=== PATIENT | male | born 1945 | race Caucasian/White ===

== ENCOUNTER 2025-01-17 09:31 | Inpatient (IN) | payer OTHER ==
[2025-01-17 10:05] LABS: Absolute Eosinophils 0.2 K/uL (0-0.5); Absolute Monocytes 0.9 K/uL (0.1-1.3); Absolute Neutrophil 3.3 K/uL (1.8-8.0); Basophils % 0.6 % (0-1.3); Eosinophils % 3.5 % (0-4.4); Hematocrit 41.9 % (39.6-49.0); Hemoglobin 14.2 g/dL (13.6-17.9); Lymphocytes % 31.4 % (15.3-44.8); MCH 34.7 pg (27.0-35.0); MCHC 33.9 g/dL (32.0-36.0); MCV 102.4 fL (80-100); Neutrophils % 50.5 % (41.7-73.7); Nucleated Red Blood Cells % 0.1 % (0-0); Platelets 245 thou/uL (152-406); RBC Red Blood Cell Count 4.09 M/uL (4.33-5.43); Red Cell Distribution Width 16.8 % (12.1-15.2)
[2025-01-17 10:18] LABS: Sqamous Epithelial <5 /HPF (None Seen); Urine Bacteria None Seen /HPF (<20); Urine Bilirubin NEGATIVE (Negative); Urine Blood Negative (Negative); Urine Clarity Clear (Clear); Urine Color Light-Yellow (Yellow); Urine Culture Reflex Order NOT NEEDED; Urine Glucose NEGATIVE (Negative); Urine Ketones NEGATIVE (Negative); Urine Microscopic Reflex YN ORDER UMIC; Urine Mucus Slight /HPF (None Seen); Urine Nitrite NEGATIVE (Negative); Urine Protein NEGATIVE (Negative); Urine RBC <5 /HPF (None Seen); Urine Urobilinogen Normal (Normal); Urine WBC <5 /HPF (<5); Urine pH 7.5 (5.0-7.0)
[2025-01-17 10:25] LABS: Albumin 2.7 g/dL (3.4-5.0); Albumin/Globulin Ratio 0.7 (1.1-1.8); Anion Gap 8.5 mEq/L (5.0-15.0); Bilirubin Total 2.2 mg/dL (0.2-1.0); Globulin 3.7 g/dL (2.3-3.5); Potassium 3.5 mEq/L (3.5-5.1); Protein, Total 6.4 g/dL (6.4-8.2)
[2025-01-17 10:27] LABS: Troponin High Sensitivity 139.7 pg/mL (<58.9)
--- NOTE | 2025-01-17 10:28 | RAD REPORT ---
EXAMINATION: ONE VIEW CHEST XR CLINICAL INDICATION: Male, 79 years old.,COUGH TECHNIQUE: Frontal chest projection is submitted. Examination is limited by patient positioning and t echnique. COMPARISON: No prior exam. FINDINGS: The lungs are well inflated and clear. No pneumothorax or sizable effusion. The heart is normal in s ize. Mediastinal contours are unremarkable. IMPRESSION: No acute intrathoracic abnormalities.
[2025-01-17] MEDS ORDERED: ASPIRIN 325 MG TAB ONE (11:30)
[2025-01-17] MEDS ORDERED: LACTULOSE 20 GM/30 ML UCUP ONE (11:31)
--- NOTE | 2025-01-17 11:33 | ER ---
Nurse's Notes [facility] Name: Irwin Fletcher Age: 79 yrs Sex: Male : 1945 Arrival Date: 01/17/2025 Time: 09:31 Bed 7 Private MD: Diagnosis: HEPATIC ENCEPHALOPATHY;ELEVATED TROPONIN Presentation: 01/17 09:48 Risk Assessment: Do you want to hurt yourself or someone else? Patient reports no iw desire to harm self or others. Onset of symptoms was January 16, 2025. 09:48 Acuity: LC 3 iw 09:49 Chief complaint: EMS states: AMS since yesterday morning, pt is at [place] for rehab and iw normally is ambulatory , could not get up for PT yesterday morning because he was shaking , this morning he was too shaky for PT again, pt arrived to ER incontinent of urine , sheets and diaper saturated with urine , pt oriented to person and place. Coronavirus screen: At this time, the client does not indicate any symptoms associated with coronavirus-19. Ebola Screen: No symptoms or risks identified at this time. Initial Sepsis Screen: Does the patient meet any 2 criteria? Altered Mental Status. Does the patient have a suspected source of infection?. 09:49 Method Of Arrival: EMS: [facility] iw 09:52 Care prior to arrival: IV initiated. 18 GA, in the right antecubital area, Glucose iw check: 92. Historical: - Allergies: 09:56 No Known Allergies; sw6 - PMHx: 09:56 Cirrhosis of liver; sw6 10:05 Kidney disease; Dementia; iw Screenin:34 [facility] ED Fall Risk Assessment (Adult) History of falling in the last 3 months, iw including since admission Yes- single mechanical fall (1 pt) Confusion or Disorientation Yes (5 pts) Intoxicated or Sedated No (0 pts) Impaired Gait Yes (1 pt) Mobility Assist Device Used Yes (1 pt) Altered Elimination Yes (1 pt) Score/Fall Risk Level 3 or more points = High Risk Oriented to surroundings, Maintained a safe environment. Abuse screen: Denies threats or abuse. Nutritional screening: No deficits noted. Tuberculosis screening: No symptoms or risk factors identified. Assessment: 09:36 General: Appears in no apparent distress. Behavior is restless. Pain: Denies pain. iw Neuro: Level of Consciousness is awake, alert, confused, Oriented to person, place. Cardiovascular: Patient's skin is warm and dry. Respiratory: Respiratory effort is even, unlabored, Respiratory pattern is regular. GI: Abdomen is non-distended. Derm: Skin is fragile. 10:34 Reassessment: Patient appears in no apparent distress at this time. Patient and/or iw family updated on plan of care and expected duration. Pain level reassessed. 12:30 Reassessment: Patient appears in no apparent distress at this time. Patient and/or jb4 family updated on plan of care and expected duration. Pain level reassessed. Pt remains alert and oriented x2. Admitting provider at the bedside. 13:30 Reassessment: Patient appears in no apparent distress at this time. Patient and/or jb4 family updated on plan of care and expected duration. Pain level reassessed. Pt A\T\Ox1 respirations are even and unlabored with no s/s of pain or distress noted. 15:00 Reassessment: Patient appears in no apparent distress at this time. No changes from jb4 previously documented assessment. Patient and/or family updated on plan of care and expected duration. Pain level reassessed. Vital Signs: 09:48 BP 162 / 85; Pulse 81; Resp 16; Temp 97.8; Pulse Ox 100% on R/A; iw 10:39 BP 163 / 74; Pulse 84; Resp 16; Pulse Ox 100% on R/A; iw 12:16 BP 154 / 84; Pulse 65; Resp 23; Pulse Ox 98% on R/A; ld1 14:30 BP 140 / 82; Pulse 85; Resp 18; Pulse Ox 95% on R/A; jb4 ED Course: 09:36 Patient arrived in ED. bc6 09:37 Bhavna Pimentel MD is Attending Physician. sw6 09:46 Jovita Pimentel, RN is Primary Nurse. iw 09:49 Triage completed. iw 09:53 Arm band placed on. iw 10:05 CXR XRAY In Process Unspecified. EDMS 10:34 No provider procedures requiring assistance completed. Maintain EMS IV. Dressing iw intact. Good blood return noted. Site clean \T\ dry. Gauge \T\ site: 18 RAC. Flushed with 10 mL NS. 10:36 Patient has correct armband on for positive identification. Provided Education on: . iw Client placed on continuous cardiac and pulse oximetry monitoring. NIBP monitoring applied. batch attendant on. 11:31 [place]ise Jerry is Hospitalizing Provider. sw6 13:00 CT Head Brain wo Cont In Process Unspecified. EDMS 15:47 Patient admitted, IV remains in place. jb4 Administered Medications: 11:38 Drug: Lactulose PO 20 grams 30 ml PO once Volume: 30 ml; Route: PO; iw 11:38 Drug: Aspirin PO 325 mg PO once Route: PO; Medication: 10:34 VIS not applicable for this client. Outcome: 11:32 Decision to Hospitalize by Provider. sw6 15:46 Admitted to Med/surg accompanied by tech, via stretcher, room 217, with chart, jb4 15:46 Condition: stable 15:46 Discharge instructions given to patient, family, Instructed on the need for admit, Demonstrated understanding of instructions, 15:47 Patient left the ED. jb4 Signatures: Dispatcher [employer] EDJovita Lay RN RN Matias Valenzuela RN RN jb4 Sinai Mcdermott RN RN ld1 Madison Daniels 6 Bhavna Pimentel MD MD sw6 Corrections: (The following items were deleted from the chart) 15:46 13:30 Reassessment: Patient appears in no apparent distress at this time. No changes jb4 from previously documented assessment. Patient and/or family updated on plan of care and expected duration. Pain level reassessed. jb4
--- NOTE | 2025-01-17 11:33 | EDPHYS ---
Physician Documentation [facility] Name: Irwin Fletcher Age: 79 yrs Sex: Male : 1945 Arrival Date: 01/17/2025 Time: 09: Bed 7 Private MD: ED Physician Bhavna Pimentel HPI: 01/17 09:54 This 79 yrs old Male presents to ER via EMS with complaints of Altered Mental sw6 Status. 09:52 The patient presents with confusion. Onset: The symptoms/episode began/occurred sw6 yesterday. 09:54 Associated signs and symptoms: The patient has no apparent associated signs or sw6 symptoms. Current symptoms: In the emergency department the patient's symptoms are unchanged from the initial presentation. The patient presents with EMS from his alf for evaluation for altered mental status. They report he was last his normal self yesterday morning. No reported injuries or trauma. No reports of fever. The patient denies all complaints. He is normally alert and oriented x 4. Today he can tell me his name and that he is at the hospital but does not know time or date. No headache. No neck pain. No chest pain. No abdominal pain. He does have a history of cirrhosis of the liver and is supposed to be on lactulose. It is unclear about his compliance with that. Here for ovation.. Historical: - Allergies: :56 No Known Allergies; sw6 - PMHx: :56 Cirrhosis of liver; sw6 10:05 Kidney disease; Dementia; iw ROS: 09:56 Constitutional: Negative for fever, chills, and weight loss, Cardiovascular: Negative sw6 for chest pain, palpitations, and edema, Respiratory: Negative for shortness of breath, cough, wheezing, and pleuritic chest pain, Abdomen/GI: Negative for abdominal pain, nausea, vomiting, diarrhea, and constipation, MS/Extremity: Negative for injury and deformity, Skin: Negative for injury, rash, and discoloration, :56 Neuro: Positive for altered mental status, Exam: :56 Constitutional: This is a well developed, well nourished patient who is awake, alert, sw6 and in no acute distress. Cardiovascular: Regular rate and rhythm with a normal S1 and S2. No gallops, murmurs, or rubs. Normal PMI, no JVD. No pulse deficits. Respiratory: Lungs have equal breath sounds bilaterally, clear to auscultation and percussion. No rales, rhonchi or wheezes noted. No increased work of breathing, no retractions or nasal flaring. Abdomen/GI: Soft, non-tender, with normal bowel sounds. No distension or tympany. No guarding or rebound. No evidence of tenderness throughout. Skin: Warm, dry with normal turgor. Normal color with no rashes, no lesions, and no evidence of cellulitis. 09:56 Neuro: Orientation: to person, place, Not oriented to time, situation, 11:50 ECG was reviewed by the Attending Physician. Vital Signs: 09:48 BP 162 / 85; Pulse 81; Resp 16; Temp 97.8; Pulse Ox 100% on R/A; iw 10:39 BP 163 / 74; Pulse 84; Resp 16; Pulse Ox 100% on R/A; iw 12:16 BP 154 / 84; Pulse 65; Resp 23; Pulse Ox 98% on R/A; ld1 14:30 BP 140 / 82; Pulse 85; Resp 18; Pulse Ox 95% on R/A; jb4 MDM: 09:56 Differential Diagnosis: electrolyte abnormality, hypoglycemia, pneumonia, UTI, Hepatic sw6 encephalopathy. 11:25 Data reviewed: vital signs, nurses notes, EMS record, alf records, lab test result(s), EKG, radiologic studies, plain films. ED course: The patient is doing well in the ER. His urinalysis shows no infection. His laboratory studies show an elevated ammonia level of 108. He was given a dose of lactulose here in the ER. His troponin is also elevated however he denies any chest pain or pressure and his EKG shows a normal sinus rhythm, no STEMI. He was given a dose of aspirin here in the ER. His chest x-ray shows no acute cardiopulmonary issues. He does require admission for continued management.. 11:32 Medical Screening Exam initiated 11:33 Consideration of Admission/Observation Patient was admitted/placed on observation. Management of patient was discussed with the following: Hospitalist: Dr. Marte. ED course: Spoke with Dr. Marte with the internal medicine service and the patient was accepted for admission for continued management.. 11:34 Historians other than the Patient: EMS: . 01/17 09:51 Order name: CBC with Diff; Complete Time: 11:22 01/17 11:23 Interpretation: Within normal limits. 01/17 09:51 Order name: CMP; Complete Time: 11:22 01/17 11:23 Interpretation: HYPOALBUMINEMIA, HYPERBILIRUBINEMIA. 01/17 09:51 Order name: Lipase; Complete Time: 11:22 01/17 11:24 Interpretation: Within normal limits. 01/17 09:51 Order name: Urinalysis w/ reflexes; Complete Time: 11:22 01/17 11:23 Interpretation: Within normal limits. 01/17 09:51 Order name: AMMONIA; Complete Time: 11:22 01/17 11:23 Interpretation: MYRIAM 108. 01/17 09:51 Order name: Magnesium; Complete Time: 11:22 01/17 11:24 Interpretation: Within normal limits. 01/17 09:51 Order name: Troponin High Sensitivity; Complete Time: 11:22 01/17 11:24 Interpretation: Elevated troponin. 01/17 13:41 Order name: Ammonia EDMS 01/17 13:41 Order name: Ammonia EDMS 01/17 13:41 Order name: Ammonia EDMS 01/17 13:41 Order name: Ammonia EDMS 01/17 13:41 Order name: Ammonia EDMS 01/17 13:41 Order name: Ammonia EDMS 01/17 13:41 Order name: CBC with Automated Diff EDMS 01/17 13:41 Order name: CBC with Automated Diff EDMS 01/17 13:42 Order name: CBC with Automated Diff EDMS 01/17 13:42 Order name: CBC with Automated Diff EDMS 01/17 13:42 Order name: CBC with Automated Diff EDMS 01/17 13:42 Order name: CBC with Automated Diff EDMS 01/17 13:42 Order name: Comprehensive Metabolic Panel EDMS 01/17 13:42 Order name: Comprehensive Metabolic Panel EDMS 01/17 13:42 Order name: Comprehensive Metabolic Panel EDMS 01/17 13:42 Order name: Comprehensive Metabolic Panel EDMS 01/17 13:42 Order name: Comprehensive Metabolic Panel EDMS 01/17 13:42 Order name: Comprehensive Metabolic Panel EDMS 01/17 13:42 Order name: Magnesium EDMS 01/17 13:42 Order name: Magnesium EDMS 01/17 13:42 Order name: Magnesium EDMS 01/17 13:42 Order name: Magnesium EDMS 01/17 13:42 Order name: Magnesium EDMS 01/17 13:42 Order name: Magnesium EDMS 01/17 13:42 Order name: Phosphorus EDMS 01/17 13:42 Order name: Phosphorus EDMS 01/17 13:42 Order name: Phosphorus EDMS 01/17 13:42 Order name: Phosphorus EDMS 01/17 13:42 Order name: Phosphorus EDMS 01/17 13:42 Order name: Phosphorus EDMS 01/17 13:42 Order name: Troponin High Sensitivity EDMS 01/17 13:42 Order name: Troponin High Sensitivity EDMS 01/17 13:42 Order name: Troponin High Sensitivity EDMS 01/17 13:47 Order name: Protime (+INR) EDMS 01/17 13:47 Order name: PTT, Activated Partial Thromb EDMS 01/17 09:51 Order name: CXR XRAY; Complete Time: 11:22 01/17 11:24 Interpretation: No acute disease. 01/17 12:29 Order name: CT Head Brain wo Cont; Complete Time: 14:06 01/17 14:06 Interpretation: No acute disease. 01/17 09:51 Order name: IV Saline Lock; Complete Time: 09:58 01/17 09:51 Order name: Labs collected and sent; Complete Time: 09:58 01/17 10:00 Order name: EKG - Nurse/Tech; Complete Time: 10:33 EC:50 Rate is 64 beats/min. Rhythm is regular, 1st Degree Block. QRS interval is normal. QT sw6 interval is normal. No Q waves. T waves are Normal. Administered Medications: 11:38 Drug: Lactulose PO 20 grams 30 ml PO once Volume: 30 ml; Route: PO; iw 11:38 Drug: Aspirin PO 325 mg PO once Route: PO; iw Disposition Summary: 01/17/25 11:32 Hospitalization Ordered Notes: Hospitalization Status: Inpatient Admission sw6 Provider: Jerry Marte Location: Telemetry/MedSurg (Inpatient) sw6 Condition: Fair sw6 Problem: new sw6 Symptoms: are unchanged sw6 Bed/Room Type: Standard [facility] Room Assignment: 217(01/17/25 15:04) [facility] Diagnosis - HEPATIC ENCEPHALOPATHY sw6 - ELEVATED TROPONIN [facility] Forms: - Medication Reconciliation Form 6 - SBAR form [facility] - Leadership Thank You Letter [facility] Signatures: Dispatcher [employer] Jovita Kaminski RN RN Madison Clay [facility] Bhavna Pimentel MD MD sw Corrections: (The following items were deleted from the chart) 09:51 09:51 CBC+H.LAB.BRZ ordered. EDMS EDMS 09:51 09:51 COMPREHENSIVE METABOLIC PANEL+C.LAB.BRZ ordered. EDMS EDMS 09:51 09:51 LIPASE+C.LAB.BRZ ordered. EDMS EDMS 09:51 09:51 Urinalysis+U.LAB.BRZ ordered. EDMS EDMS 09:51 09:51 AMMONIA+C.LAB.BRZ ordered. EDMS EDMS 09:51 09:51 MAGNESIUM+C.LAB.BRZ ordered. EDMS EDMS 09:51 09:51 Troponin High Sensitivity+C.LAB.BRZ ordered. EDMS EDMS 09:51 09:51 Chest Single View+RAD.RAD.BRZ ordered. EDMS EDMS 10:05 10:00 Chest Single View+RAD.RAD.BRZ ordered. EDMS EDMS 15:04 11:32 [place] [id number]
--- NOTE | 2025-01-17 12:04 | P.HP ---
Certification for Inpatient Patient admitted to: Observation With expected LOS: <2 Midnights Practitioner: I am a practitioner with admitting privileges, knowledge of patient current condition, hospital course, and medical plan of care. Services: Services provided to patient in accordance with Admission requirements found in Title 42 Section 412.3 of the Code of Federal Regulations Patient History Date of Service: 01/17/25 Reason for admission: Acute Hepatic encephalopathy vs CVA r/o History of Present Illness: Irwin Fletcher is an 79 year old male with pmhx Dementia, Cirrhosis of liver, and kidney disease presents to the ED from the senior care with altered mental status for one day. He is oriented x1, unable to obtain ROS. Initial examination he is confused, answers his name, slow body movements touching the right of his face and head, no acute distress. Son at the bedside reports the changes seen in his dad. He is not speaking like he usually does, he is not moving his left arm and right leg as normal. Re-examination showed equal strength with bilateral hand squeezing and leg lifting, he was able to follow commands and answer more questions. NIHSS 1 for left sided facial drooping. Laboratory evaluation significant for total bilirubin 2.2, ammonia 108, troponin 139.7 Chest x-ray reports "No acute intrathoracic abnormalities." CT head reports "No evidence of acute intracranial abnormality." Irwin will be admitted to hospitalist service for hepatic encephalopathy vs CVA. 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 -: bradycardia -: Portal hypertension -: Chronic kidney disease stage II -: Dementia Past Surgical History: Unable to obtain - Social History Smoking Status: Unknown if ever smoked Review of Systems is unable to be obtained Physical Examination - Physical Exam General: Oriented x1 HEENT: Other (bilateral conjunctivitis ) Neck: 2+ carotid pulse no bruit Respiratory: Clear to auscultation bilaterally, Normal air movement Cardiovascular: Normal pulses, Regular rate/rhythm Gastrointestinal: Normal bowel sounds, Hepatomegaly Musculoskeletal: No clubbing Integumentary: No rashes Neurological: Other (Slow body movements), Dementia - Studies Laboratory Data (last 24 hrs) 01/17/25 01/17/25 09:54 09:54 WBC 6.50 Hgb 14.2 Hct 41.9 Plt Count 245 Sodium 142 Potassium 3.5 BUN 8 Creatinine 1.08 Glucose 93 Magnesium 2.0 Total Bilirubin 2.2 H AST 31 ALT 23 Alkaline Phosphatase 76 Lipase 34 Assessment and Plan - Plan Assessment and plan Acute Hepatic encephalopathy vs CVA Liver cirrhosis -Ammonia 108, T. bili 2.2 -Lactulose given in the ED, will restart home medications -Physical and PRODUCTION MAINTENANCE MECHANIC consulted -trend LFT and ammonia -NIHSS 1 -Permissive HTN -Q4hr neurochecks -MRI head, US bilateral carotids, ECHO -PT, PRODUCTION MAINTENANCE MECHANIC consulted -Asa, folic acid, atorvastatin -supportive care NSTEMI -Troponin 139.7, serial pending -Echocardiogram ordered -Cardiology consulted -Aspirin, Lipitor daily -Weight based lovenox BID -Pain control -Continuous telemetry -EKG showing normal sinus rhythm Dementia Kidney disease -Continue home medication -Supportive care DVT PPx Lovenox Full code LOS 24 OBS Discharge Plan: Long Term Plan to discharge in: 48 Hours - Advance Directives Does patient have a Living Will: No Does patient have a Durable POA for Healthcare: No
--- NOTE | 2025-01-17 13:20 | RAD REPORT ---
EXAM: CT Head Brain Wo Cont HISTORY: CONFUSED COMPARISON: None TECHNIQUE: Multiple contiguous axial images were obtained for a CT of the brain without contrast. Sag ittal and coronal reformats were performed. One or more of the following dose reduction techniques were used: Automated exposure control, adjus tment of the mA and kV according to patient size, and iterative reconstruction. Unless otherwise specified, incidental findings do not require dedicated imaging follow-up. FINDINGS: No evidence of hydrocephalus, intracranial hemorrhage, or extra-axial fluid collection. Moderate brain atrophy with moderate periventricular and deep white matter chronic microvascular isc hemic changes present. The calvarium is intact. The visualized paranasal sinuses and mastoid air cells are essentially clear . IMPRESSION: No evidence of acute intracranial abnormality.
[2025-01-17] MEDS ORDERED: ACETAMINOPHEN 325 MG TABLET PO PRN (13:33)
[2025-01-17 16:11] VITALS: BMI 27.3
[2025-01-17] MEDS: ENOXAPARIN 100 MG/ML SYR SQ SCH (17:00)
[2025-01-17] MEDS: NA CHLORIDE 0.9% 1,000 ML IV SCH (20:44)
[2025-01-17] MEDS: ATORVASTATIN 40 MG TAB PO SCH (20:45)
[2025-01-17] MEDS ORDERED: ATORVASTATIN 20 MG TAB PO SCH (21:00)
[2025-01-18 06:20] LABS: PT Prothrombin Time 15.2 SECONDS (10-13.0); PTT, Activated Partial Thromb 47.2 SECONDS (27.2-37.4); Protime INR 1.35
[2025-01-18 06:36] LABS: Albumin 2.2 g/dL (3.4-5.0); Albumin/Globulin Ratio 0.7 (1.1-1.8); Anion Gap 7.7 mEq/L (5.0-15.0); Bilirubin Total 2.4 mg/dL (0.2-1.0); Magnesium 1.9 mg/dL (1.6-2.4); Potassium 3.7 mEq/L (3.5-5.1); Protein, Total 5.2 g/dL (6.4-8.2); T4,Total 4.5 ug/dL (4.5-12.1); Thyroid Stimulating Hormone 1.2 uIU/mL (0.358-3.740)
[2025-01-18 07:01] LABS: Absolute Basophils 0.2 K/uL (0-0.5); Absolute Eosinophils 0.2 K/uL (0-0.5); Absolute Lymphocytes (CBC) 1.8 K/uL (0.7-4.9); Absolute Monocytes 0.9 K/uL (0.1-1.3); Absolute Neutrophil 2.8 K/uL (1.8-8.0); Basophils % 2.8 % (0-1.3); Eosinophils % 3.6 % (0-4.4); Hematocrit 34.8 % (39.6-49.0); Lymphocytes % 30.1 % (15.3-44.8); MCHC 34.6 g/dL (32.0-36.0); MCV 101.4 fL (80-100); MPV 9.6 fL (7.6-11.3); Monocytes % 15.2 % (3.3-12.3); Neutrophils % 48.3 % (41.7-73.7); Nucleated Red Blood Cells % 0.2 % (0-0); Platelets 205 thou/uL (152-406); RBC Red Blood Cell Count 3.43 M/uL (4.33-5.43)
--- NOTE | 2025-01-18 08:14 | RAD REPORT ---
EXAMINATION: US CAROTID DUPLEX CLINICAL INDICATION: , 79 years old. CVA rule out. TECHNIQUE: Real-time grayscale, color flow and spectral Doppler sonographic images were obtained of t extracranial carotid system using a linear transducer. [id number]. COMPARISON: No prior exam. FINDINGS: RIGHT: Common carotid artery: 79 cm/s Internal carotid artery: 128 cm/s External carotid artery: 121 cm/s Right ICA/CCA ratio: 1.6 Plaque Moderate Calcified and noncalcified Vertebral artery Antegrade LEFT: Common carotid artery: 105 cm/s Internal carotid artery: 105 cm/s External carotid artery: 103 cm/s lEFT ICA/CCA ratio: 1 Plaque Moderate Calcified and noncalcified Vertebral artery Antegrade IMPRESSION: No hemodynamically significant stenosis (greater than 50%) within the extracranial internal carotid a [facility].
[2025-01-18] MEDS: Rifaximin 550 MG Tab PO SCH (10:51)
[2025-01-18] MEDS: FOLIC ACID 1 MG TABLET PO SCH (10:51)
[2025-01-18] MEDS: ASPIRIN EC 81 MG TAB PO SCH (10:51)
[2025-01-18] MEDS: LACTULOSE 20 GM/30 ML UCUP PO SCH (10:51)
[2025-01-18] MEDS: FUROSEMIDE 20 MG TABLET PO SCH (10:51)
[2025-01-18] MEDS: PNEUMOCOCCAL VACCINE 0.5 ML IMVAC ONE (16:04)
[2025-01-18] MEDS: FLU (Fluarix Triv) TS24-25(6MOS UP)/PF 45 MCG/0.5 ML Syringe IM ONE (16:28)
--- NOTE | 2025-01-18 17:53 | P.PN ---
Date of Service: 01/18/25 Subjective Initial evaluation, fatigue but oriented worked with PT, will require continued PT ROS 10 point ROS as noted above, otherwise negative Physical Exam General: sleeping, Oriented x1 HEENT: Other (bilateral conjunctivitis ) Neck: 2+ carotid pulse no bruit Respiratory: Clear to auscultation bilaterally, Normal air movement, on RA Cardiovascular: Normal pulses, RRR Gastrointestinal: Normal bowel sounds, Hepatomegaly, nontender on palpation Musculoskeletal: No clubbing Integumentary: No rashes Neurological: Other (Slow body movements), Dementia Vitals Reviewed Problem list Acute Hepatic encephalopathy vs CVA Liver cirrhosis NSTEMI Dementia Kidney disease Assessment and Plan Acute Hepatic encephalopathy vs CVA Liver cirrhosis -Ammonia 108, T. bili 2.2 -Lactulose given in the ED, will restart home medications -Physical and BARIATRIC COORDINATOR consulted -trend LFT and ammonia -NIHSS 1 -Permissive HTN -Q4hr neurochecks -MRI head, US bilateral carotids, ECHO -PT, BARIATRIC COORDINATOR consulted -Asa, folic acid, atorvastatin -supportive care NSTEMI -Troponin 139.7, serial pending -Echocardiogram ordered -Cardiology consulted -Aspirin, Lipitor daily -Weight based lovenox BID -Pain control -Continuous telemetry -EKG showing normal sinus rhythm Dementia Kidney disease -Continue home medication -Supportive care Interval Hospital Course 01/18/25 -Continue home medications -MRI brain pending -bilateral US reports "No hemodynamically significant stenosis (greater than 50%) within the extracranial internal carotid arteries." -hemodynamically stable -cardiology recommendations appreciated DVT PPx Lovenox Full code LOS 24 OBS Discharge Plan: Alf
--- NOTE | 2025-01-18 19:18 | CON ---
Date of Consultation: 01/18/2025 Reason For Consultation: Elevated troponin. History Of Present Illness: This is an 79-year-old male who is brought in from assisted due to a ltered mental status, has liver cirrhosis, dementia, chronic kidney disease. Denies having any chest pain. I saw him by bedside. He has no complaints of chest pain whatsoever. Appears to be lethargi c and confused. Past Medical History: As outlined above in the HPI. Medications: Refer reconciliation sheet for detailed list. Allergies: NO KNOWN DRUG ALLERGIES. Family History: No premature coronary artery disease or cancer. Social History: Does not smoke or drink. Does not use any drugs. Review of Systems: All systems reviewed are negative except as mentioned in HPI. Physical Examination: Vital Signs: Reviewed. Head and Neck: Pupils are equal, reactive to light. Intact eye movements. No JVD, no cervical lymp hadenopathy. Neck is supple. Thyroid is not enlarged. Lungs: Clear to auscultation bilaterally. No crackles, no accessory muscle use. Heart: Regular rate and rhythm. No extra sounds. Abdomen: Soft, nontender. Bowel sounds positive. No organomegaly. No masses or hernia. No rigidi ty or rebound. Extremities: No edema, clubbing, or cyanosis. Intact pulses. Skin: No rashes. NEUROLOGIC: Alert, awake, and oriented x3. No acute focal deficits appreciated. Investigations: BUN 10, creatinine 1.0. Troponin peaked at 143 and it is trending down. Hemoglobin is 12. Assessment And Plan: 1. Slightly elevated troponin, but no chest pain. This is demand ischemia. The patient is completel y asymptomatic and he is severely demented with liver cirrhosis. No further cardiac workup is needed at this point. 2. Liver cirrhosis and being managed with rifaximin and lactulose. 3. Dyslipidemia, on Lipitor. 4. Chronic heart failure. Appears to be euvolemic on Lasix. Cardiology will sign off. SR/MODL Voice ID: [id number] Report ID: [id number]
--- NOTE | 2025-01-18 20:04 | RAD REPORT ---
EXAMINATION: MRI BRAIN WITHOUT AND WITH CONTRAST CLINICAL INDICATION: CVA r/o TECHNIQUE: Multiplanar multisequence MR images of the brain were obtained without and with intravenou s contrast. Unless otherwise specified, incidental findings do not require dedicated imaging follow-up. COMPARISON: No prior exam. FINDINGS: INTRACRANIAL: There is abnormal FLAIR signal and cortical abnormal diffusion-weighted signal with red uced ADC mapping both posterior frontal lobes in a gyriform pattern. No evidence of postcontrast enhancement. Elsewhere, no hemorrhage, hydrocephalus or areas of restricted diffusion. Moderate atrop hy. VASCULATURE: Normal signal voids in the larger intracranial arteries and dural venous sinuses. SINUSES: The paranasal sinuses and mastoid air cells are predominantly clear. BONE: The marrow signal pattern is within normal limits. CONTRAST: No pathologic postcontrast enhancement to indicate tumor or infection. OTHER FINDINGS: IMPRESSION: There is abnormal elevated FLAIR diffusion restriction involving both posterior frontal lobe in a gyr iform pattern. Possibilities would include vascular thromboocclusive disease, hemodynamic changes, infections or underlying metabolic conditions.
[2025-01-18] MEDS: DONEPEZIL HCL 5 MG TAB PO SCH (20:38)
[2025-01-18] MEDS: GABAPENTIN 100 MG CAP PO SCH (20:38)
[2025-01-19 05:28] LABS: Absolute Eosinophils 0.3 K/uL (0-0.5); Absolute Lymphocytes (CBC) 1.7 K/uL (0.7-4.9); Absolute Neutrophil 3.1 K/uL (1.8-8.0); Basophils % 0.3 % (0-1.3); Eosinophils % 5.1 % (0-4.4); Hematocrit 33.7 % (39.6-49.0); Hemoglobin 11.7 g/dL (13.6-17.9); Lymphocytes % 27.5 % (15.3-44.8); MCH 35.2 pg (27.0-35.0); MCHC 34.7 g/dL (32.0-36.0); MCV 101.4 fL (80-100); MPV 9.1 fL (7.6-11.3); Monocytes % 16.4 % (3.3-12.3); Neutrophils % 50.7 % (41.7-73.7); Nucleated Red Blood Cells % 0.1 % (0-0); Platelets 183 thou/uL (152-406); RBC Red Blood Cell Count 3.33 M/uL (4.33-5.43); Red Cell Distribution Width 16.4 % (12.1-15.2)
[2025-01-19] MEDS: PANTOPRAZOLE 40MG TABLET PO SCH (05:36)
[2025-01-19 05:48] LABS: Albumin 2.1 g/dL (3.4-5.0); Albumin/Globulin Ratio 0.7 (1.1-1.8); Anion Gap 7.3 mEq/L (5.0-15.0); Bilirubin Total 1.9 mg/dL (0.2-1.0); Magnesium 1.8 mg/dL (1.6-2.4); Phosphorus 3.1 mg/dL (2.5-4.9); Potassium 3.3 mEq/L (3.5-5.1); Protein, Total 5.1 g/dL (6.4-8.2)
[2025-01-19] MEDS: MAGNESIUM SULFATE 1 gm IVPB 1 GM/100 ML BAG IV ONE (06:32)
[2025-01-19] MEDS: POTASSIUM 25 MEQ EFFERV TAB PO ONE ×3 (10:17→21:54)
--- NOTE | 2025-01-19 14:12 | P.PN ---
Date of Service: 01/19/25 Subjective More awake wearing his glasses worked with PT ROS 10 point ROS as noted above, otherwise negative Physical Exam General: Awake, Oriented x1 HEENT: Other (bilateral conjunctivitis ) Neck: 2+ carotid pulse no bruit Respiratory: Clear BBS, Normal air movement, on RA Cardiovascular: Normal pulses, RRR, S1 S2 present Gastrointestinal: Normal bowel sounds, Hepatomegaly, nontender on palpation Musculoskeletal: No clubbing Integumentary: No rashes Neurological: Other (Slow body movements), Dementia Vitals Reviewed Problem list Acute Hepatic encephalopathy vs CVA Liver cirrhosis NSTEMI Dementia Kidney disease Assessment and Plan Acute Hepatic encephalopathy vs CVA Liver cirrhosis -intial Ammonia 108, T. bili 2.2 -Lactulose given in the ED, will restart home medications -Physical and FULL STACK DEVELOPER consulted -trend LFT and ammonia -NIHSS 1 -Permissive HTN -Q4hr neurochecks -MRI head, US bilateral carotids, ECHO -PT, FULL STACK DEVELOPER consulted -Asa, folic acid, atorvastatin -supportive care NSTEMI -Troponin 139.7, serial pending -Echocardiogram ordered -Cardiology consulted -Aspirin, Lipitor daily -Weight based lovenox BID -Pain control -Continuous telemetry -EKG showing normal sinus rhythm Dementia Kidney disease -Continue home medication -Supportive care Interval Hospital Course 01/18/25 -Continue home medications -MRI brain pending -bilateral US reports "No hemodynamically significant stenosis (greater than 50%) within the extracranial internal carotid arteries." -hemodynamically stable -cardiology recommendations appreciated 01/19/25 -Ammonia and T bili improving -More alert and conversing -Cardiology reports demand ischemia, signed off DVT PPx Lovenox Full code LOS 24 OBS Discharge Plan: [facility]
[2025-01-19] MEDS: Rifaximin 550 MG Tab PO SCH (20:41)
[2025-01-20 06:13] LABS: Absolute Basophils 0.1 K/uL (0-0.5); Absolute Eosinophils 0.4 K/uL (0-0.5); Absolute Lymphocytes (CBC) 1.7 K/uL (0.7-4.9); Absolute Neutrophil 2.5 K/uL (1.8-8.0); Basophils % 2.1 % (0-1.3); Eosinophils % 7.3 % (0-4.4); Hematocrit 31.7 % (39.6-49.0); Hemoglobin 11.4 g/dL (13.6-17.9); Lymphocytes % 29.8 % (15.3-44.8); MCH 36.5 pg (27.0-35.0); MCV 101.4 fL (80-100); MPV 9.3 fL (7.6-11.3); Monocytes % 17.6 % (3.3-12.3); Neutrophils % 43.2 % (41.7-73.7); Nucleated Red Blood Cells % 0.2 % (0-0); Platelets 176 thou/uL (152-406); RBC Red Blood Cell Count 3.13 M/uL (4.33-5.43); Red Cell Distribution Width 16.1 % (12.1-15.2)
[2025-01-20 06:24] LABS: Albumin/Globulin Ratio 0.7 (1.1-1.8); Anion Gap 6.7 mEq/L (5.0-15.0); Bilirubin Total 1.5 mg/dL (0.2-1.0); Globulin 2.9 g/dL (2.3-3.5); Phosphorus 2.3 mg/dL (2.5-4.9); Potassium 3.7 mEq/L (3.5-5.1); Protein, Total 4.9 g/dL (6.4-8.2)
[2025-01-20] MEDS: POTASS/SODIUM PHOSPHATE 1 PKT POWD.PACK PO SCH (08:00)
[2025-01-20] MEDS: LACTULOSE 20 GM/30 ML UCUP PO SCH (10:17)
[2025-01-20] MEDS: POTASSIUM 25 MEQ EFFERV TAB PO ONE (10:19)
--- NOTE | 2025-01-20 12:09 | P.PN ---
Date of Service: 01/20/25 Subjective Cognition returning able to feed himself and converse well Awaiting [facility] approval- likely Tuesday or Tuesday ROS 10 point ROS as noted above, otherwise negative Physical Exam General: Awake, Oriented x2 HEENT: Other (bilateral conjunctivitis ) Respiratory: Nonlabored breathing, on RA Cardiovascular: Normal sinus rhythm, S1 S2 present Gastrointestinal: Hepatomegaly, nontender on palpation Musculoskeletal: No clubbing Integumentary: No rashes Neurological: Other (Slow body movements), Dementia Vitals Reviewed Problem list Acute Hepatic encephalopathy vs CVA Liver cirrhosis NSTEMI Dementia Kidney disease Assessment and Plan Acute Hepatic encephalopathy vs CVA Liver cirrhosis -intial Ammonia 108, T. bili 2.2 -Lactulose given in the ED, will restart home medications -Physical and LABORATORY ASST consulted -trend LFT and ammonia -NIHSS 1 -Permissive HTN -Q4hr neurochecks -MRI head, US bilateral carotids, ECHO -PT, LABORATORY ASST consulted -Asa, folic acid, atorvastatin -supportive care NSTEMI -Troponin 139.7, serial pending -Echocardiogram ordered -Cardiology consulted -Aspirin, Lipitor daily -Weight based lovenox BID -Pain control -Continuous telemetry -EKG showing normal sinus rhythm Dementia Kidney disease -Continue home medication -Supportive care Interval Hospital Course 01/18/25 -Continue home medications -MRI brain pending -bilateral US reports "No hemodynamically significant stenosis (greater than 50%) within the extracranial internal carotid arteries." -hemodynamically stable -cardiology recommendations appreciated 01/19/25 -Ammonia and T bili improving -More alert and conversing -Cardiology reports demand ischemia, signed off 01/20/25 -Improved cognition -continue home medications, ammonia stable -awaiting [facility] approval DVT PPx Lovenox Full code LOS 24 OBS Discharge Plan: [facility]
[2025-01-21 04:35] LABS: Absolute Eosinophils 0.5 K/uL (0-0.5); Absolute Lymphocytes (CBC) 1.6 K/uL (0.7-4.9); Absolute Monocytes 1.1 K/uL (0.1-1.3); Absolute Neutrophil 2.8 K/uL (1.8-8.0); Basophils % 0.7 % (0-1.3); Hematocrit 33.7 % (39.6-49.0); Lymphocytes % 25.8 % (15.3-44.8); MCH 35.9 pg (27.0-35.0); MCHC 35.5 g/dL (32.0-36.0); MCV 101.2 fL (80-100); Monocytes % 17.6 % (3.3-12.3); Neutrophils % 46.9 % (41.7-73.7); Platelets 161 thou/uL (152-406); RBC Red Blood Cell Count 3.33 M/uL (4.33-5.43); Red Cell Distribution Width 16.1 % (12.1-15.2)
[2025-01-21 04:48] LABS: Albumin/Globulin Ratio 0.6 (1.1-1.8); Anion Gap 6.6 mEq/L (5.0-15.0); Bilirubin Total 1.1 mg/dL (0.2-1.0); Globulin 3.1 g/dL (2.3-3.5); Phosphorus 2.2 mg/dL (2.5-4.9); Potassium 3.6 mEq/L (3.5-5.1); Protein, Total 5.1 g/dL (6.4-8.2)
[2025-01-21] MEDS ORDERED: HYDRALAZINE HCL 20 MG/ML VIAL IV PRN (07:29)
--- NOTE | 2025-01-21 08:58 | ECHO ---
HEIGHT: 5 ft 11 in WEIGHT: 196 lb 0 oz DATE OF STUDY: 01/18/[address]: Juanita Coreas NP 2-DIMENSIONAL: YES M.MODE: YES DOPPLER: YES COLOR FLOW: YES TDS: PORTABLE: YES DEFINITY: BUBBLE STUDY: DIAGNOSIS: STROKE CARDIAC HISTORY: CATHERIZATION: SURGERY: PROSTHETIC VALVE: PACEMAKER: MEASUREMENTS (cm) DIASTOLIC (NORMALS) SYSTOLIC (NORMALS) IVSd 1.1 (0.6-1.2) LA Diam 3.3 (1.9-4.0) LVEF 55-60% LVIDd 4.0 (3.5-5.7) LVIDs 2.8 (2.0-3.5) %FS 30% LVPWd 1.1 (0.6-1.2) Ao Diam 3.7 (2.0-3.7) 2 DIMENSIONAL ASSESSMENT: RIGHT ATRIUM: NORMAL LEFT ATRIUM: NORMAL RIGHT VENTRICLE: NORMAL LEFT VENTRICLE: NORMAL TRICUSPID VALVE: NORMAL MITRAL VALVE: MILD MITRAL REGURGITATION PULMONIC VALVE: NORMAL AORTIC VALVE: NORMAL PERICARDIAL EFFUSION: NONE AORTIC ROOT: NORMAL LEFT VENTRICULAR WALL MOTION: NORMAL DOPPLER/COLOR FLOW: SEE BELOW COMMENTS: 1. NORMAL LEFT VENTRICULAR EJECTION FRACTION 55-60% 2. NORMAL WALL MOTION 3. MILD MITRAL ANNULAR CALCIFICATION TECHNOLOGIST: CASSIUS MOSLEY
[2025-01-21] MEDS: POTASS/SODIUM PHOSPHATE 1 PKT POWD.PACK PO SCH (10:15)
[2025-01-21] MEDS: LACTULOSE 20 GM/30 ML UCUP PO SCH (10:16)
--- NOTE | 2025-01-21 15:13 | P.PN ---
Date of Service: 01/21/25 Subjective Doing well, no new complaints Awaiting [facility] approval- likely Tuesday or Tuesday ROS 10 point ROS as noted above, otherwise negative Physical Exam General: AAO x2, NAD HEENT: conjunctivitis improved Respiratory: Nonlabored breathing, symmetrical chest wall movement on RA Cardiovascular: NSR, S1 S2 present Gastrointestinal: Hepatomegaly, nontender on palpation Musculoskeletal: No clubbing Integumentary: No rashes Neurological: Other (Slow body movements), Dementia Vitals Reviewed Problem list Acute Hepatic encephalopathy Liver cirrhosis hyperammonemia NSTEMI Dementia Kidney disease Assessment and Plan Acute Hepatic encephalopathy Liver cirrhosis hyperammonemia -CVA ruled out -intial Ammonia 108, T. bili 2.2 -Lactulose given in the ED, will restart home medications -Physical and DIRECTOR MEDICAL SCIENCE consulted -trend LFT and ammonia -Permissive HTN -Q4hr neurochecks -MRI head, US bilateral carotids, ECHO -PT, DIRECTOR MEDICAL SCIENCE consulted -Asa, folic acid, atorvastatin -supportive care NSTEMI -Troponin 139.7, serial pending -Echocardiogram ordered -Cardiology consulted -Aspirin, Lipitor daily -Weight based lovenox BID -Pain control -Continuous telemetry -EKG showing normal sinus rhythm Dementia Kidney disease -Continue home medication -Supportive care Interval Hospital Course 01/18/25 -Continue home medications -MRI brain reports "There is abnormal elevated FLAIR diffusion restriction involving both posterior frontal lobe in a gyriform pattern. Possibilities would include vascular thromboocclusive disease, hemodynamic changes,infections or underlying metabolic conditions" -Per Dr. Bailey, this is a typical presentation for his liver cirrhosis and elevated ammonia as wel as other differentials, CVA has been ruled out. -bilateral US reports "No hemodynamically significant stenosis (greater than 50%) within the extracranial internal carotid arteries." -hemodynamically stable -cardiology recommendations appreciated 01/19/25 -Ammonia and T bili improving -More alert and conversing -Cardiology reports demand ischemia, signed off 01/20/25 -Improved cognition -continue home medications, ammonia stable -awaiting [facility] approval 01/21/25 -Ammonia increased, changed lactulose dose -alert and oriented and reports he is ready to discharge -Awaiting [facility] approval -Hemodynamically stable DVT PPx Lovenox Full code LOS 24 OBS Discharge Plan: [facility]
--- NOTE | 2025-01-21 23:48 | CON ---
Date of Consultation: 01/21/2025 Time Of Service: 12:35 p.m. Chief Complaint: Consult was called because of confusion due to hepatic encephalopathy versus stroke . History Of Present Illness: Mr. Fletcher is an 79-year-old patient with chronic alcoholic liver dise ase. He has portal hypertension, chronic kidney disease, and dementia. The patient was brought in b y his son on 01/17/2025 with worsening confusion, disorientation, difficulty moving his right and lef t arm. At the emergency room, his symptoms appeared to fluctuate and at the time of evaluation by ergency room physician, had resolved to an NIH scale of 1 due to left facial drooping. His CT scan o f the head showed no acute ischemic hemorrhagic findings. The study showed moderate brain atrophy wi th deep small-vessel microvascular ischemic disease and has deep white matter. Echocardiogram showed ejection fraction of 55%, essentially unremarkable study. Carotid artery ultrasound showed no hemod ynamically significant stenosis in the extracranial internal carotid arteries. His blood work was re vealing showing elevated ammonia level. Today, ammonia level is 110. Potassium was low at 3.4. De s liver function study was otherwise unremarkable. White blood cell count remained actually normal s tuyet his admission. Urinalysis was unremarkable. Brain MRI done on the showed abnormal FLAIR s ignal in the cortical area with diffusion weighted signaling and reduced ADC mapping in both posterio r frontal lobes in a gyriform pattern. The differential diagnosis per the radiologist did include me tabolic derangement in addition to vascular thrombo-occlusive disease or hemodynamic change. Given t he patient's significant liver dysfunction and elevation of his hepatic function, is most likely etio logy. At the time of my evaluation, patient was interactive, responsive, and appropriate. He did not have facial drooping. Equal movements of upper and lower extremities, equal sensory responses to light to uch. The patient did have a sitter at bedside and later there was a plan for physical therapy to hav e the patient up and ambulate. Allergies: NO KNOWN DRUG ALLERGIES. Past Surgical History: No recent surgeries. Family History: Noncontributory. Social History: Remote alcohol consumption in the past. No current alcohol use. Medications: Tylenol 650 every 4 hours as needed, aspirin 81 mg daily, Lipitor 40 mg at bedtime, Adam cept 10 mg at bedtime, Lovenox 90 mg subcutaneous every 12 hours, folic acid 1 mg daily, Lasix 20 mg daily, gabapentin 100 mg twice daily, Apresoline as needed 10 mg for very elevated blood pressure, la ctulose 20 g 3 times daily, Protonix 40 mg daily, Xifaxan 550 mg twice daily. He is receiving IV flu ids at 75 cc an hour normal saline. Review of Systems: At this point, patient denies any fevers or chills. No nausea, vomiting. No significant myalgias, a rthralgias, rash, headache, weight change. No focal deficits. Physical Examination: Vital Signs: Blood pressure 164/72, pulse 65, respiratory rate 18, temperature 97.7, oxygen saturati on 99%. Weight 196 pounds, height 5 feet 11 inches, BMI 27.3. General: Mr. Fletcher is lying comfortably in bed. He appears to be in no acute distress. He has v jese poor dentures, missing lots of teeth. HEENT: Otherwise, he is normocephalic, atraumatic. Sclerae anicteric. Oropharynx pink and moist. Neck: Supple. Chest: Clear. Extremities: No significant edema, cyanosis, or clubbing noted. Assessment: Mr. Fletcher is an 79-year-old patient with hepatic encephalopathy has improved. He has MRI findings consistent with metabolic encephalopathy, elevated ammonia to 110. He has apparently b aseline dementia, portal hypertension, and he has stage 2 kidney disease. I did recommend continue I V fluids, continue with aggressive use of lactulose, decrease ammonia level. The patient may if he h as any episodes of continuing confusion, have an EEG, which may show biphasic and triphasic activity in frontal regions confirming the encephalopathic pattern. However, at this point, patient seems to have returned towards the baseline level of functioning, where there is a baseline cognitive impairme nt. EEG is not necessary, just continue with aggressive reduction of his ammonia level to help him r eturn towards a good baseline level of functioning. He may benefit from some aggressive physical the rapy and occupational therapy along with speech therapy. LB/MODL Voice ID: [id number] Report ID: [id number]
[2025-01-22 04:38] LABS: Absolute Basophils 0.1 K/uL (0-0.5); Absolute Eosinophils 0.6 K/uL (0-0.5); Absolute Lymphocytes (CBC) 1.6 K/uL (0.7-4.9); Absolute Monocytes 0.9 K/uL (0.1-1.3); Absolute Neutrophil 2.3 K/uL (1.8-8.0); Basophils % 2.2 % (0-1.3); Hematocrit 35.5 % (39.6-49.0); Hemoglobin 12.6 g/dL (13.6-17.9); Lymphocytes % 28.9 % (15.3-44.8); MCH 35.9 pg (27.0-35.0); MCHC 35.5 g/dL (32.0-36.0); MCV 101.1 fL (80-100); MPV 8.7 fL (7.6-11.3); Monocytes % 16.2 % (3.3-12.3); Neutrophils % 41.7 % (41.7-73.7); Nucleated Red Blood Cells % 0.1 % (0-0); Platelets 190 thou/uL (152-406); RBC Red Blood Cell Count 3.51 M/uL (4.33-5.43); Red Cell Distribution Width 16.3 % (12.1-15.2)
[2025-01-22 04:45] LABS: Albumin 2.3 g/dL (3.4-5.0); Albumin/Globulin Ratio 0.7 (1.1-1.8); Anion Gap 5.5 mEq/L (5.0-15.0); Bilirubin Total 1.3 mg/dL (0.2-1.0); Globulin 3.4 g/dL (2.3-3.5); Potassium 3.5 mEq/L (3.5-5.1); Protein, Total 5.7 g/dL (6.4-8.2)
--- NOTE | 2025-01-22 12:36 | P.PN ---
Date of Service: 01/22/25 Subjective Doing well, no new complaints At baseline mental status ROS 10 point ROS as noted above, otherwise negative Physical Exam General: AAO x2, NAD HEENT: conjunctivitis improved Respiratory: Nonlabored breathing, symmetrical chest wall movement on RA Cardiovascular: NSR, S1 S2 present Gastrointestinal: Hepatomegaly, nontender on palpation Musculoskeletal: No clubbing Integumentary: No rashes Neurological: Other (Slow body movements), Dementia Vitals Reviewed Problem list Acute Hepatic encephalopathy Liver cirrhosis hyperammonemia NSTEMI Dementia Kidney disease Assessment and Plan Acute Hepatic encephalopathy Liver cirrhosis hyperammonemia -CVA ruled out -PT and LABOR STANDARDS DIRECTOR consulted -trend LFT and ammonia -supportive care -Continue lactulose NSTEMI -Troponin trended flat, cardiology believes this is demand ischemia -Echocardiogram shows normal EF, wall motion -Cardiology signed off -Aspirin, Lipitor daily -DVT dose Lovenox -Continuous telemetry -EKG showing normal sinus rhythm -Denies chest pain Dementia Kidney disease -Continue home medication -Supportive care DVT PPx Lovenox Full code LOS 24 OBS Discharge Plan: [facility]
[2025-01-23 03:52] VITALS: O2SAT 94
[2025-01-23] MEDS: ENOXAPARIN 40 MG/0.4 ML SQ SCH (10:01)
--- NOTE | 2025-01-23 14:13 | P.PN ---
Date of Service: 01/23/25 Subjective Doing well, no new complaints No acute events overnight ROS 10 point ROS as noted above, otherwise negative Physical Exam General: AAO x2, NAD HEENT: conjunctivitis improved Respiratory: Nonlabored breathing, symmetrical chest wall movement on RA Cardiovascular: NSR, S1 S2 present Gastrointestinal: Hepatomegaly, nontender on palpation Musculoskeletal: No clubbing Integumentary: No rashes Neurological: Other (Slow body movements), Dementia Vitals Reviewed Problem list Acute Hepatic encephalopathy Liver cirrhosis hyperammonemia NSTEMI Dementia Kidney disease Assessment and Plan Acute Hepatic encephalopathy Liver cirrhosis hyperammonemia -CVA ruled out -PT and DIRECTOR INTERNAL CONTROL consulted -trend LFT and ammonia -supportive care -Continue lactulose -Hx right hip fx with surgery ~3 months ago -Was living with his who recently -P2P completed today for inpatient rehab-suspect this will be denied -May need SNF instead before returning home NSTEMI -Troponin trended flat, cardiology believes this is demand ischemia -Echocardiogram shows normal EF, wall motion -Cardiology signed off -Aspirin, Lipitor daily -DVT dose Lovenox -Continuous telemetry -EKG showing normal sinus rhythm -Denies chest pain Dementia Kidney disease -Continue home medication -Supportive care DVT PPx Lovenox Full code LOS 48 hours Discharge Plan: Long-Term
--- NOTE | 2025-01-24 08:52 | EKG ---
Test Date: 2025-01-17 Test Time: 10:16:54 Disease Case Manager Rn: RAZA MEASUREMENT RESULTS: Intervals: Rate: 64 LA: 366 QRSD: 84 QT: 480 QTc: 495 [place]: P: 67 LA: 366 QRS: -54 T: 12 INTERPRETIVE STATEMENTS: Sinus rhythm with 1st degree AV block Left anterior fascicular block Nonspecific ST abnormality Abnormal ECG No previous ECG available for comparison Electronically Signed On 01-24-25 08:41:45 CDT by Larry Agee
--- NOTE | 2025-01-24 13:10 | P.PN ---
Date of Service: 01/24/25 Subjective Doing well, no new complaints No acute events overnight ROS 10 point ROS as noted above, otherwise negative Physical Exam General: AAO x2, NAD HEENT: conjunctivitis improved Respiratory: Nonlabored breathing, symmetrical chest wall movement on RA Cardiovascular: NSR, S1 S2 present Gastrointestinal: Hepatomegaly, nontender on palpation Musculoskeletal: No clubbing Integumentary: No rashes Neurological: Other (Slow body movements), Dementia Vitals Reviewed Problem list Acute Hepatic encephalopathy Liver cirrhosis hyperammonemia NSTEMI Dementia Kidney disease Assessment and Plan Acute Hepatic encephalopathy Liver cirrhosis hyperammonemia -CVA ruled out -PT and AIRFIELD MANAGER consulted -trend LFT and ammonia -supportive care -Continue lactulose -Hx right hip fx with surgery ~3 months ago -Was living with his who recently -P2P completed today for inpatient rehab-suspect this will be denied -May need SNF instead before returning home -Still awake, alert, oriented x2-3 NSTEMI -Troponin trended flat, cardiology believes this is demand ischemia -Echocardiogram shows normal EF, wall motion -Cardiology signed off -Aspirin, Lipitor daily -DVT dose Lovenox -Continuous telemetry -EKG showing normal sinus rhythm -Denies chest pain Dementia Kidney disease -Continue home medication -Supportive care DVT PPx Lovenox Full code LOS 48 hours Discharge Plan: Group Home
[2025-01-25 06:25] LABS: Hematocrit 31.4 % (39.6-49.0); Hemoglobin 11.3 g/dL (13.6-17.9); MCV 100.1 fL (80-100); MPV 9.1 fL (7.6-11.3); Platelets 150 thou/uL (152-406); RBC Red Blood Cell Count 3.13 M/uL (4.33-5.43)
[2025-01-25 06:43] LABS: Albumin/Globulin Ratio 0.7 (1.1-1.8); Anion Gap 7.6 mEq/L (5.0-15.0); Potassium 3.6 mEq/L (3.5-5.1)
--- NOTE | 2025-01-25 14:47 | P.PN ---
Date of Service: 01/25/25 Subjective Doing well, no new complaints No acute events overnight Working well with PT Out of bed today ROS 10 point ROS as noted above, otherwise negative Physical Exam General: AAO x2, NAD HEENT: conjunctivitis improved Respiratory: Nonlabored breathing, symmetrical chest wall movement on RA Cardiovascular: NSR, S1 S2 present Gastrointestinal: Hepatomegaly, nontender on palpation Musculoskeletal: No clubbing Integumentary: No rashes Neurological: Other (Slow body movements), Dementia Vitals Reviewed Problem list Acute Hepatic encephalopathy Liver cirrhosis hyperammonemia NSTEMI Dementia Kidney disease Assessment and Plan Acute Hepatic encephalopathy Liver cirrhosis hyperammonemia -CVA ruled out -PT and LABOR SERVICE REPRESENTATIVE consulted -trend LFT and ammonia -supportive care -Continue lactulose -Hx right hip fx with surgery ~3 months ago -Was living with his who recently -Initially denied for inpatient rehab, appeal submitted -Still awake, alert, oriented x2-3 NSTEMI -Troponin trended flat, cardiology believes this is demand ischemia -Echocardiogram shows normal EF, wall motion -Cardiology signed off -Aspirin, Lipitor daily -DVT dose Lovenox -Continuous telemetry -EKG showing normal sinus rhythm -Denies chest pain Dementia Kidney disease -Continue home medication -Supportive care DVT PPx Lovenox Full code LOS 48 hours Discharge Plan: Group Home
--- NOTE | 2025-01-26 12:13 | P.PN ---
Date of Service: 01/26/25 Subjective Doing well, no new complaints No acute events overnight Working well with PT ROS 10 point ROS as noted above, otherwise negative Physical Exam General: AAO x2, NAD HEENT: conjunctivitis improved Respiratory: Nonlabored breathing, symmetrical chest wall movement on RA Cardiovascular: NSR, S1 S2 present Gastrointestinal: Hepatomegaly, nontender on palpation Musculoskeletal: No clubbing Integumentary: No rashes Neurological: Other (Slow body movements), Dementia Vitals Reviewed Problem list Acute Hepatic encephalopathy Liver cirrhosis hyperammonemia NSTEMI Dementia Kidney disease Assessment and Plan Acute Hepatic encephalopathy Liver cirrhosis hyperammonemia -CVA ruled out -PT and COMMUNITY HEALTH AGENT consulted -trend LFT and ammonia -supportive care -Continue lactulose -Hx right hip fx with surgery ~3 months ago -Was living with his who recently -Initially denied for inpatient rehab, appeal submitted -Still awake, alert, oriented x2-3 -Out of bed with PT 01/25-cont to encourage ambulation NSTEMI -Troponin trended flat, cardiology believes this is demand ischemia -Echocardiogram shows normal EF, wall motion -Cardiology signed off -Aspirin, Lipitor daily -DVT dose Lovenox -Continuous telemetry -EKG showing normal sinus rhythm -Denies chest pain Dementia Kidney disease -Continue home medication -Supportive care DVT PPx Lovenox Full code LOS 48 hours Discharge Plan: Inp rehab
[2025-01-27 05:40] LABS: Hematocrit 34.5 % (39.6-49.0); Hemoglobin 12.4 g/dL (13.6-17.9); MCH 35.7 pg (27.0-35.0); MCHC 35.8 g/dL (32.0-36.0); MCV 99.7 fL (80-100); MPV 8.8 fL (7.6-11.3); Platelets 180 thou/uL (152-406); RBC Red Blood Cell Count 3.46 M/uL (4.33-5.43); Red Cell Distribution Width 16.2 % (12.1-15.2)
[2025-01-27 05:58] LABS: Anion Gap 9.3 mEq/L (5.0-15.0); Potassium 3.3 mEq/L (3.5-5.1)
[2025-01-27] MEDS: POTASSIUM 25 MEQ EFFERV TAB PO ONE (09:03)
--- NOTE | 2025-01-27 14:00 | P.PN ---
Date of Service: 01/27/25 Subjective Doing well, no new complaints No acute events overnight Working well with PT BM overnight x2 ROS 10 point ROS as noted above, otherwise negative Physical Exam General: AAO x2, NAD HEENT: conjunctivitis improved Respiratory: Nonlabored breathing, symmetrical chest wall movement on RA Cardiovascular: NSR, S1 S2 present Gastrointestinal: Hepatomegaly, nontender on palpation Musculoskeletal: No clubbing Integumentary: No rashes Neurological: Other (Slow body movements), Dementia Vitals Reviewed Problem list Acute Hepatic encephalopathy Liver cirrhosis hyperammonemia NSTEMI Dementia Kidney disease Assessment and Plan Acute Hepatic encephalopathy Liver cirrhosis hyperammonemia -CVA ruled out -PT and RUBY SOFTWARE DEVELOPER consulted -trend LFT and ammonia -supportive care -Continue lactulose -Hx right hip fx with surgery ~3 months ago -Was living with his who recently -Initially denied for inpatient rehab, appeal submitted -Still awake, alert, oriented x2-3 -Out of bed with PT 01/25-cont to encourage ambulation NSTEMI -Troponin trended flat, cardiology believes this is demand ischemia -Echocardiogram shows normal EF, wall motion -Cardiology signed off -Aspirin, Lipitor daily -DVT dose Lovenox -Continuous telemetry -EKG showing normal sinus rhythm -Denies chest pain Dementia Kidney disease -Continue home medication -Supportive care DVT PPx Lovenox Full code LOS 48 hours Discharge Plan: Inp rehab
--- NOTE | 2025-01-28 13:28 | P.DS ---
Admission Date: 01/17/25 Discharge Date: 01/28/25 Disposition: TRANSFER TO INPATIENT REHAB Discharge Condition: GOOD Reason for Admission: Acute Hepatic encephalopathy vs CVA r/o Brief History of Present Illness: Irwin Fletcher is an 79 year old male with pmhx Dementia, Cirrhosis of liver, and kidney disease [facility] with altered mental status for one day. He is oriented x1, unable to obtain ROS. Initial examination he is confused, answers his name, slow body movements touching the right of his face and head, no acute distress. Son at the bedside reports the changes seen in his dad. He is not speaking like he usually does, he is not moving his left arm and right leg as normal. Re-examination showed equal strength with bilateral hand squeezing and leg lifting, he was able to follow commands and answer more questions. NIHSS 1 for left sided facial drooping. Hospital Course: Problem list Acute Hepatic encephalopathy Liver cirrhosis hyperammonemia NSTEMI Dementia Kidney disease Patient who had a recent hip fracture was admitted to hospital for hepatic encephalopathy. He was treated with oral lactulose and his symptoms have improved. He has been working well with physical therapy and is stable for discharge to inpatient rehab for further PT before discharging home. Patient continue his home medications as present prescribed including his lactulose and rifaximin. His dose of lactulose has been increased to 20 mg 3 times daily which she seems to be tolerating well at this time. Vital Signs/Physical Exam: Temp Pulse Resp BP Pulse Ox 98.4 F 64 16 157/68 H 95 01/28/25 12:00 01/28/25 12:00 01/28/25 12:00 01/28/25 12:00 01/28/25 12:00 General: Alert, In no apparent distress, Oriented x2 HEENT: Atraumatic, PERRLA Neck: Supple, JVD not distended Respiratory: Clear to auscultation bilaterally, Normal air movement Cardiovascular: Regular rate/rhythm, Normal S1 S2 Gastrointestinal: Normal bowel sounds, No tenderness Musculoskeletal: No tenderness Integumentary: No rashes Neurological: Normal speech, Normal affect Laboratory Data at Discharge: WBC 7.70 thou/uL (4.3-10.9) 01/27/25 05:19 Hgb 12.4 g/dL (13.6-17.9) L 01/27/25 05:19 Hct 34.5 % (39.6-49.0) L 01/27/25 05:19 Plt Count 180 thou/uL (152-406) 01/27/25 05:19 PT 15.2 SECONDS (10-13.0) H 01/18/25 05:35 INR 1.35 01/18/25 05:35 APTT 47.2 SECONDS (27.2-37.4) H 01/18/25 05:35 Sodium 142 mEq/L (136-145) 01/27/25 05:19 Potassium 3.3 mEq/L (3.5-5.1) L 01/27/25 05:19 BUN 8 mg/dL (7-18) 01/27/25 05:19 Creatinine 0.76 mg/dL (0.70-1.30) 01/27/25 05:19 Glucose 91 mg/dL (74-106) 01/27/25 05:19 Phosphorus 3.0 mg/dL (2.5-4.9) 01/22/25 04:11 Magnesium 2.0 mg/dL (1.6-2.4) 01/22/25 04:11 Total Bilirubin 1.0 mg/dL (0.2-1.0) 01/25/25 05:37 AST 24 U/L (15-37) 01/25/25 05:37 ALT 19 U/L (16-61) 01/25/25 05:37 Alkaline Phosphatase 64 U/L (45-117) 01/25/25 05:37 Lipase 34 U/L (13-75) 01/17/25 09:54 Home Medications: Acetaminophen 650 mg PO Q6HP PRN 01/20/25 Alendronate Sodium 35 mg PO EVERY 7TH DAY 01/20/25 Aspirin Chewable [Aspirin Chewable*] 81 mg PO DAILY 01/20/25 Donepezil HCl [Aricept] 10 mg PO DAILY 01/20/25 Furosemide [Lasix*] 20 mg PO DAILY 01/20/25 Gabapentin [Neurontin*] 100 mg PO BID 01/20/25 Omeprazole Magnesium [Prilosec Otc] 20 mg PO DAILY 01/20/25 Potassium Chloride 20 meq PO DAILY 01/20/25 Rifaximin [Xifaxan] 550 mg PO BID 01/20/25 Lactulose [Cephulac*] 30 ml PO TID #2700 ml 01/28/25 New Medications: Lactulose [Cephulac*] 30 ml PO TID #2700 ml Physician Discharge Instructions: Patient who had a recent hip fracture was admitted to hospital for hepatic encephalopathy. He was treated with oral lactulose and his symptoms have improved. He has been working well with physical therapy and is stable for discharge to inpatient rehab for further PT before discharging home. Patient continue his home medications as present prescribed including his lactulose and rifaximin. His dose of lactulose has been increased to 20 mg 3 times daily which she seems to be tolerating well at this time. Diet: Regular Activity: Fall precautions Time spent managing pt's care (in minutes): 46
[2025-01-28 17:06] VITALS: BP 137/63; TEMP 98.6
== END 2025-01-28 17:18 | DRG 441 ==
LOC: ER 09:31 → ERHOLD 13:33 → 2ND 15:15
PROVIDERS: ADMIT Internal Medicine; ATTEND Hospitalist
DX: K76.82 Hepatic encephalopathy (principal); G93.41 Metabolic encephalopathy; I21.A1 Myocardial infarction type 2; I13.0 Hypertensive heart and chronic kidney disease with heart failure and stage 1 through stage 4 chronic kidney disease, or unspecified chronic kidney disease; E72.20 Disorder of urea cycle metabolism, unspecified; I50.9 Heart failure, unspecified; N18.2 Chronic kidney disease, stage 2 (mild); K74.60 Unspecified cirrhosis of liver; F03.90 Unspecified dementia, unspecified severity, without behavioral disturbance, psychotic disturbance, mood disturbance, and anxiety; Z63.4 Disappearance and death of family member
CPT/HCPCS: 36415; 70450; 70553; 71045; 80048; 80053; 81001; 82140; 82947; 83690; 83735; 84100; 84132; 84436; 84443; 84484; 85025; 85027; 85610; 85730; 90471; 90656; 90732; 92526; 92610; 93005; 93306; 93880; 97110; 97112; 97116; 97161; 97530; 99285; A9577; J1650; J3475; J7030